=== PATIENT | male | born 1995 | race Two or more races ===

== ENCOUNTER 2018-05-03 15:13 | Emergency (ER) | payer MEDICAID ==
[~2018-05-03] VITALS: Ht 170.2 cm; Wt 83.9 kg
[2018-05-03 15:25] VITALS: BP 132/67
[2018-05-03] MEDS ORDERED: diphenhdrAMINE HCL 50 MG/1 ML VL ONE (15:29)
[2018-05-03] MEDS ORDERED: diphenhdrAMINE HCL 50 MG/1 ML VL IV ONE (15:30)
== END 2018-05-03 23:19 | disposition left against medical advice (07) ==
LOC: ER 15:22
DX: T14.8XXA Other injury of unspecified body region, initial encounter (principal); Z53.21 Procedure and treatment not carried out due to patient leaving prior to being seen by health care provider; W57.XXXA Bitten or stung by nonvenomous insect and other nonvenomous arthropods, initial encounter; Y93.89 Activity, other specified; Y99.8 Other external cause status; Y92.89 Other specified places as the place of occurrence of the external cause